=== PATIENT | male | born 1985 | race African-American/Black ===

== ENCOUNTER 2017-05-09 09:42 | Emergency (ER) | payer SELFPAY ==
[2017-05-09 10:30] LABS: Bilirubin Negative (Negative); Blood, Urine Negative (Negative); Clarity Clear (Clear); Glucose, Urine (Dipstick) Negative (Negative); Leukocyte Negative (Negative); Nitrite Negative (Negative); Protein, Urine (Dipstick) Negative (Neg-Trace); Specific Gravity, Urine 1.025 (1.005-1.030)
--- NOTE | 2017-05-09 10:31 | RAD ---
TWO VIEW CHEST: Indication: Right sided chest pain, recent onset. Comparison: None. FINDINGS: There is no evidence of consolidation, effusions, or discrete pneumothorax. Cardiac silhouette is wi thin normal limits in size. Osseous structures are intact. IMPRESSION: No focal consolidation. POS: [facility]
[2017-05-09] MEDS ORDERED: Ibuprofen 800 MG TAB ONE (10:43)
== END 2017-05-09 10:48 | disposition home or self-care (01) ==
LOC: NAV ERS 09:42
DX: S29.011A Strain of muscle and tendon of front wall of thorax, initial encounter (principal); X58.XXXA Exposure to other specified factors, initial encounter
CPT/HCPCS: 71020; 81003

== ENCOUNTER 2018-01-31 07:25 | Emergency (ER) | payer SELFPAY ==
[2018-01-31] MEDS ORDERED: Ondansetron ODT 4 MG TAB ONE (07:37)
== END 2018-01-31 08:10 | disposition home or self-care (01) ==
LOC: NAV ERS 07:25
DX: T67.5XXA Heat exhaustion, unspecified, initial encounter (principal); K52.9 Noninfective gastroenteritis and colitis, unspecified
CPT/HCPCS: 99283; Q0162

== ENCOUNTER 2018-03-19 21:16 | Emergency (ER) | payer SELFPAY ==
[2018-03-19] MEDS ORDERED: Cephalexin 250 MG CAP ONE (21:47)
[2018-03-19] MEDS ORDERED: Naproxen 500 MG TAB ONE (21:47)
== END 2018-03-19 21:55 | disposition home or self-care (01) ==
LOC: NAV ERS 21:16
DX: K04.7 Periapical abscess without sinus (principal); K02.9 Dental caries, unspecified; F17.210 Nicotine dependence, cigarettes, uncomplicated
CPT/HCPCS: 99283

== ENCOUNTER 2018-09-02 06:38 | Emergency (ER) | payer SELFPAY ==
[2018-09-02] MEDS ORDERED: traMADol HCl 50 MG TAB ONE (07:13)
[2018-09-02] MEDS ORDERED: predniSONE 20 MG TAB ONE (07:14)
== END 2018-09-02 07:26 | disposition home or self-care (01) ==
LOC: NAV ERS 06:38
DX: M54.6 Pain in thoracic spine (principal); Z87.891 Personal history of nicotine dependence
CPT/HCPCS: 99283; J7506

== ENCOUNTER 2020-11-23 09:38 | Emergency (ER) | payer BC, SELFPAY | END 2020-11-23 10:45 | disposition home or self-care (01) | LOC: NAV ERS 09:38 | DX: M62.830 Muscle spasm of back (principal); Z87.891 Personal history of nicotine dependence | CPT/HCPCS: 71045; 93005 ==

== ENCOUNTER 2021-07-26 10:34 | Emergency (ER) | payer BC ==
[2021-07-26 21:15] LABS: SARS-CoV-2 PCR by NAA Not Detected (NotDetected)
== END 2021-07-26 11:20 | disposition home or self-care (01) ==
LOC: NAV ERS 10:34
DX: J02.9 Acute pharyngitis, unspecified (principal); R05.9 Cough, unspecified; R09.89 Other specified symptoms and signs involving the circulatory and respiratory systems; R06.7 Sneezing; F17.210 Nicotine dependence, cigarettes, uncomplicated; Z20.822 Contact with and (suspected) exposure to COVID-19
CPT/HCPCS: 99283; U0003; U0005

== ENCOUNTER 2021-08-18 04:42 | Emergency (ER) | payer BC, SELFPAY ==
[2021-08-18] MEDS ORDERED: Acetaminophen 500 MG TAB ONE (05:04)
[2021-08-18 06:12] LABS: SARS-CoV-2 NAA Rapid Test DETECTED (NotDetected)
== END 2021-08-18 05:18 | disposition home or self-care (01) ==
LOC: NAV ERS 04:42
DX: U07.1 COVID-19 (principal); F17.210 Nicotine dependence, cigarettes, uncomplicated
CPT/HCPCS: 0240U; 99283

== ENCOUNTER 2022-02-17 10:13 | Emergency (ER) | payer BC ==
[2022-02-17] MEDS ORDERED: Sodium Chloride 0.9% 1,000 ML ONE (11:25)
[2022-02-17 11:42] LABS: #Basophils 0.1 thou/uL (0.0-0.2); #Eosinphils 0.1 thou/uL (0.0-0.7); #Lymphocytes 1.1 thou/uL (1.20-3.40); #Monocytes 0.4 thou/uL (0.11-0.59); #Neutrophils 2.8 thou/uL (1.40-6.50); %Basophils 2.2 % (0.0-1.0); %Eosinophils 1.8 % (0.0-10.0); %Lymphocytes 25.4 % (21.0-51.0); %Monocytes 8.6 % (0.0-10.0); Hemoglobin 14.5 g/dL (14.0-18.0); Mean Corpuscular HGB CONC 31.6 g/dL (32.0-36.0); Mean Corpuscular Hemoglobin 29.1 pg (27.0-31.0); Mean Platelet Volume 11.7 fL (7.4-10.4); Platelet Count 147 thou/uL (130-400); RBC Distribution Width 11.6 % (11.5-14.5); White Blood Cell (WBC) Count 4.5 thou/uL (4.8-10.8)
[2022-02-17 11:53] LABS: ALT (SGPT) 17 U/L (8-55); AST (SGOT) 19 U/L (5-34); Albumin 4.6 g/dL (3.5-5.0); Alkaline Phosphatase 65 U/L (40-110); Anion Gap 16 mmol/L (10-20); BUN (Urea Nitrogen) 25 mg/dL (8.9-20.6); Bilirubin, Total 1.5 mg/dL (0.2-1.2); CK (CPK) 264 U/L (30-200); Calc. Creatinine Clearance 0 mL/min (70-130); Calcium 9.5 mg/dL (7.8-10.44); Carbon Dioxide 30 mmol/L (22-29); Chloride 96 mmol/L (98-107); Globulin 2.8 g/dL (2.4-3.5); Glucose 94 mg/dL (70-105); Lipase 15 U/L (8-78); Potassium 3.9 mmol/L (3.5-5.1); Protein, Total 7.4 g/dL (6.0-8.3); Sodium 138 mmol/L (136-145)
[2022-02-17 12:04] LABS: Bilirubin Negative (Negative); Blood, Urine Negative (Negative); Clarity Clear (Clear); Glucose, Urine (Dipstick) Negative (Negative); Ketone, Urine Trace mg/dL (Negative); Leukocyte Negative (Negative); Nitrite Negative (Negative); Protein, Urine (Dipstick) Negative (Neg-Trace); Specific Gravity, Urine 1.025 (1.005-1.030)
== END 2022-02-17 12:50 | disposition home or self-care (01) ==
LOC: NAV ERS 10:13
DX: E86.0 Dehydration (principal); F17.210 Nicotine dependence, cigarettes, uncomplicated
CPT/HCPCS: 80053; 81003; 82550; 83690; 85025; 96360; J7050

== ENCOUNTER 2022-09-01 11:18 | Emergency (ER) | payer BC, SELFPAY ==
[2022-09-01] MEDS ORDERED: Ibuprofen 200 MG TAB ONE (11:38)
== END 2022-09-01 11:40 | disposition home or self-care (01) ==
LOC: NAV ERS 11:18
DX: R10.9 Unspecified abdominal pain (principal); F17.210 Nicotine dependence, cigarettes, uncomplicated
CPT/HCPCS: 99283

== ENCOUNTER 2024-08-22 15:15 | Emergency (ER) | payer SELFPAY | END 2024-08-22 15:50 | disposition home or self-care (01) | LOC: NAV ERS 15:15 | DX: M54.50 Low back pain, unspecified (principal); F17.290 Nicotine dependence, other tobacco product, uncomplicated | CPT/HCPCS: 99283 ==

== ENCOUNTER 2024-10-21 10:34 | Emergency (ER) | payer SELFPAY | END 2024-10-21 12:01 | disposition home or self-care (01) | LOC: NAV ERS 10:34 | DX: H00.11 Chalazion right upper eyelid (principal); F17.290 Nicotine dependence, other tobacco product, uncomplicated | CPT/HCPCS: 99283 ==